=== PATIENT | female | born 1980 | race Caucasian/White ===

== ENCOUNTER 2019-03-10 11:26 | Emergency (ER) | payer SELFPAY ==
[2019-03-10 11:46] VITALS: BP 119/75
--- NOTE | 2019-03-10 12:20 | UC ---
Abdominal Pain Female HPI - HPI Summary HPI Summary: Pt presents to with 2 weeks progressive lower abd pain. States x 4 days pain increased, chills, nausea and emesis x 2 - nonbloody, non black. States sx worse with BM, touch. no appetite. no OTC meds taken. Pt with h/o divertic - feels similar. Pt doesnot have insurance so has not sought med care. no PCP not meds reviewed - History of Current Complaint Chief Complaint: UCAbdominalPain Stated Complaint: ABDOMINAL PAIN Time Seen by Provider: 03/10/19 11:44 Hx Obtained From: Patient Hx Last Menstrual Period: 02/27/19 Pain Intensity: 8 Allergies/Adverse Reactions: Allergies Allergy/AdvReac Type Severity Reaction Status Date / Time bee venom protein (honey bee) Allergy Severe Anaphylatic Verified 03/10/19 11:34 Shock Sulfa (Sulfonamide Allergy Severe Anaphylatic Verified 03/10/19 11:32 Antibiotics) Shock ciprofloxacin [From Cipro] Allergy Unknown Rash Verified 03/10/19 11:34 Penicillins Allergy Unknown family hx Verified 03/10/19 11:34 of anyphlxsis Home Medications: Home Medications Acetaminophen [Non-Aspirin Extra Strengt] 1,000 mg PO PRN 03/10/19 [History] FLUoxetine CAP* [PROzac CAP*] 40 mg PO DAILY 03/10/19 [History Confirmed ] Lactobacillus Acidophilus [Freeze Dried Acidophilus] 1 cap PO DAILY 03/10/19 [ History Confirmed 03/10/19] raNITIdine HCl [Zantac 150 Maximum Streng] 150 mg PO BEDTIME 03/10/19 [History Confirmed 03/10/19] PMH/Surg Hx/FS Hx/Imm Hx Previously Healthy: Yes GI/ History: Diverticulitis - Surgical History Surgical History: Yes Surgery Procedure, Year, and Place: OVARIAN CYSTS REMOVAL TWICE. [facility] - Family History Known Family History: Positive: Non-Contributory - Social History Occupation: Employed Part-time, Student Lives: With Family Alcohol Use: None Substance Use Type: None Smoking Status (MU): Former Smoker Type: Cigarettes When Did the Patient Quit Smoking/Using Tobacco: 6 MONTHS AGO Review of Systems All Other Systems Reviewed And Are Negative: Yes Constitutional: Positive: Chills Skin: Positive: Negative Gastrointestinal: Positive: Abdominal Pain, Vomiting, Diarrhea, Nausea Genitourinary: Positive: Negative Physical Exam - Summary Physical Exam Summary: Vital Signs Reviewed: Yes A+Ox3, discomfort with position changes - holdign lower abd Eyes: Conjunctiva Clear, ZENAIDA. EOM intact and full ENT: Hearing grossly normal TM x 2 clear, mmoist, uvula midline, no exudate, no erythema Neck: Positive: Supple Respiratory: Positive: No respiratory distress, No accessory muscle use + CTA throughout no w/r Cardiovascular: RRR nl s1, s2 no m/r CBT <2 sec abd soft + BS + TTP lower quad bilat L>R no guarding, no distended Musculoskeletal Exam: WALKER x 4 without difficulty Strength Intact, ROM Intact Neurological: Positive: Alert, + sensation throughout Psychological: Positive: Normal Response To Family Skin: Positive: no rash, no ecchymosis Triage Information Reviewed: Yes Vital Signs: Initial Vital Signs Temp 97.7 F 03/10/19 11:37 Pulse 68 03/10/19 11:37 Resp 17 03/10/19 11:37 BP 119/75 03/10/19 11:37 Pulse Ox 99 03/10/19 11:37 Abd Pain Female Course/Dx - Course Course Of Treatment: Pt with progressive lower abd pain, increased x 4 days with emesis, chills Pt with h/o divertic VSS appears uncomfortable + lower abd pain L>R no guarding urine unremarkable recommend to ED for eval- pt sates understanding and agreement of plan d/w Mr. Robison in ED - aware pt coming [facility] - pt preference - Differential Dx/Diagnosis Provider Diagnosis: Abdominal pain Discharge - Sign-Out/Discharge Documenting (check all that apply): Patient Departure All imaging exams completed and their final reports reviewed: No Studies - Discharge Plan Condition: Stable Disposition: HOME-RECOMMEND TO ED Patient Education Materials: Abdominal Pain (ED) Referrals: [facility] [place] [facility] [Outside] Additional Instructions: The doctor that evaluated you today thinks that you need additional testing that can be completed the emergency department. It is recommended that you go directly to emergency department for further evaluation. This evaluation may include blood work or imaging. This testing will be directed and decided by the provider that evaluate you at the emergency department. If pain becomes worse, you feel lightheaded, you have uncontrolled vomiting, or you have any other concerns while you are being driven to emergency department as recommended to pullover and contact 911. - Billing Disposition and Condition Condition: STABLE Disposition: Home-Recommend to ED
== END 2019-03-10 12:26 | disposition home health service (06) ==
LOC: EDBD → UCCORT 11:26
DX: R10.30 Lower abdominal pain, unspecified (principal); R68.83 Chills (without fever); R11.2 Nausea with vomiting, unspecified; Z91.030 Bee allergy status; Z88.2 Allergy status to sulfonamides; Z88.1 Allergy status to other antibiotic agents; Z88.0 Allergy status to penicillin; Z87.891 Personal history of nicotine dependence
CPT/HCPCS: 81003; 99202; G0463